=== PATIENT | male | born 1990 | race Caucasian/White ===

== ENCOUNTER 2017-01-13 19:38 | Emergency (ER) | payer OTHER ==
[2017-01-13] MEDS ORDERED: DIPH,PERTUS(ACELL)TETVAC-LF 0.5 ML VIAL IM ONE (19:48)
--- NOTE | 2017-01-13 19:58 | ED ---
General Adult HPI - General Chief complaint: Fall Stated complaint: ETOH Time Seen by Provider: 01/13/17 19:42 Source: patient, EMS, RN notes reviewed Mode of arrival: EMS Limitations: no limitations - History of Present Illness Initial comments: 46-year-old male presents to ER for evaluation. Patient presents status post fall with head injury. Patient was drinking alcohol today. Fall backwards striking the back of his head. Patient denies LOC. He is not on any blood thinners. No significant past medical history. Patient denies any other complaints. Denies neck pain. Denies chest or shortness breath as well. Patient is clinically intoxicated. - Related Data Allergies Allergy/AdvReac Type Severity Reaction Status Date / Time No Known Allergies Allergy Verified 01/13/17 19:47 Review of Systems ROS Statement: Those systems with pertinent positive or pertinent negative responses have been documented in the HPI. ROS Other: All systems not noted in ROS Statement are negative. Past Medical History Past Medical History: No Reported History History of Any Multi-Drug Resistant Organisms: None Reported Past Surgical History: No Surgical Hx Reported Past Psychological History: No Psychological Hx Reported Smoking Status: Current every day smoker Past Alcohol Use History: Heavy Past Drug Use History: Marijuana General Exam Limitations: no limitations General appearance: alert, appears intoxicated Head exam: Present: normocephalic, other (1.5 cm superficial laceration on the occiput, no active bleeding, underlying hematoma.) Eye exam: Present: normal appearance, PERRL ENT exam: Present: normal exam Neck exam: Present: normal inspection, full ROM. Absent: tenderness Respiratory exam: Present: normal lung sounds bilaterally, respiratory distress Cardiovascular Exam: Present: regular rate, normal rhythm GI/Abdominal exam: Present: soft. Absent: distended, tenderness Extremities exam: Present: normal inspection, normal capillary refill. Absent: pedal edema Back exam: Present: normal inspection, full ROM Neurological exam: Present: alert. Absent: motor sensory deficit Psychiatric exam: Present: normal affect, normal mood. Absent: suicidal ideation Skin exam: Present: warm, dry. Absent: cyanosis, diaphoretic Course Vital Signs 01/13/17 01/13/17 19:44 21:31 Temperature 97.9 F Pulse Rate 96 73 Respiratory 18 16 Rate Blood Pressure 136/63 129/59 O2 Sat by Pulse 96 95 Oximetry - Reevaluation(s) Reevaluation #1: 01/13/17 21:52 On reevaluation, patient is resting comfortable, no new complaints. Patient will be discharged with his girlfriend taking him home. Medical Decision Making - Medical Decision Making 46-year-old male presents status post fall with head injury. He does have a superficial laceration and hematoma on the occipital region. Head CT is negative for hemorrhage, CT cervical spine shows no fracture or subluxation. Patient is intoxicated alcohol 260. He will be discharged with his girlfriend. She will drive him home. Patient will follow-up with his primary care physician in the next several days. Disposition Clinical Impression: Fall, Alcohol intoxication, Concussion Disposition: HOME SELF-CARE Condition: Good Instructions: Concussion (ED), Alcohol Intoxication (ED) Referrals: Jeet Oneil DO [Primary Care Provider] - 1-2 days Time of Disposition: 21:55
--- NOTE | 2017-01-13 20:18 | CT ---
EXAMINATION TYPE: CT brain kaylee samuels DATE OF EXAM: 01/13/2017 COMPARISON: NONE HISTORY: Fall today with posterior injury CT DLP: 1768.[address] Brain: Unenhanced CT of the brain was performed. The ventricles, basal cisterns and sulci overlying the cerebral convexities demonstrate a normal appe arance. There is no evidence for intracranial hemorrhage or sulcal effacement. No mass effects are seen. If symptoms persist consider MRI. Osseous calvarium is intact. Moderate pansinusitis. IMPRESSION: No acute intracranial process CT Cervical Spine: Unenhanced CT of the cervical spine was performed with bone and soft tissue window settings submitted . Coronal and sagittal reconstruction is obtained. There is normal alignment and prevertebral soft tissues. I do not see evidence for fracture or sublu xation. No significant degenerative changes are present. The lung apices are clear. IMPRESSION: No evidence for acute fracture or subluxation of the cervical spine.
[2017-01-13 21:32] VITALS: BP 129/59; PULSE 73; RESP 16
[2017-01-13 22:02] VITALS: TEMP 97.5
== END 2017-01-13 22:02 | disposition home or self-care (01) ==
LOC: EC 19:38
DX: S06.0X0A Concussion without loss of consciousness, initial encounter (principal); F10.129 Alcohol abuse with intoxication, unspecified; F17.200 Nicotine dependence, unspecified, uncomplicated; Z23 Encounter for immunization; W18.00XA Striking against unspecified object with subsequent fall, initial encounter
CPT/HCPCS: 70450; 72125; 82075; 90471; 90715; 99284

== ENCOUNTER 2017-02-28 10:51 | Emergency (ER) | payer OTHER ==
--- NOTE | 2017-02-28 12:15 | XR ---
EXAMINATION TYPE: XR tibia fibula RT , 2 VIEWS DATE OF EXAM ORDERED: 02/28/2017 HISTORY: Pain. COMPARISON: None. FINDINGS: There has been previous intramedullary jocelyn fixation of the right tibia. There are healed f ractures of the distal diaphysis of the right tibia and fibula. No acute osseous lesion is seen. IMPRESSION: 1. NO ACUTE OSSEOUS LESION. 2. POSTSURGICAL CHANGE.
--- NOTE | 2017-02-28 12:45 | ED ---
General Adult HPI - General Chief complaint: Extremity Problem,Nontraumatic Stated complaint: right leg pain Time Seen by Provider: 02/28/17 11:39 Source: patient, RN notes reviewed, old records reviewed Mode of arrival: ambulatory Limitations: no limitations - History of Present Illness Initial comments: If complaint history of present illness a 26-year-old male here with a complaint of discomfort to his right knee. Patient reports he had surgery on the knee 8 years ago. He has a jocelyn in the midline. 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 He states the knee pain actually started 6 months ago. - Related Data Previous Rx's Medication Instructions Recorded Ibuprofen [Motrin] 600 mg PO Q6HR PRN #20 tab 02/28/17 Allergies Allergy/AdvReac Type Severity Reaction Status Date / Time No Known Allergies Allergy Verified 02/28/17 12:24 Review of Systems ROS Statement: Those systems with pertinent positive or pertinent negative responses have been documented in the HPI. Review of systems no headache chest pain shows breath GI/ problems. No complaint of a neuro deficits. On complaint of discomfort to the right knee area. All systems are reviewed. Past medical problems significant as noted above to injury to his mid shaft right tib-fib with a metal bar prosthesis placed 8 years ago. Patient was also reminded that is here in emergency room with an alcohol level elevated significantly approximately 6 weeks ago with a head injury from intoxication and fall. He states he may have also injured it at that time. Otherwise patient denies any chronic medical problems denies any problems psychologically. States he does smoke daily and is a heavy alcohol user. Family history noncontributory. No ALLERGIES. ROS Other: All systems not noted in ROS Statement are negative. Past Medical History Past Medical History: No Reported History History of Any Multi-Drug Resistant Organisms: None Reported Past Surgical History: Orthopedic Surgery Past Psychological History: No Psychological Hx Reported Smoking Status: Current every day smoker Past Alcohol Use History: Heavy Past Drug Use History: Marijuana General Exam - General Exam Comments Initial Comments: General: The patient is awake and alert, in no distress, and does not appear acutely ill. 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 Vital signs are stable. Eye: Pupils are equal, , extra-ocular movements are intact; there is normal conjunctiva bilaterally. No signs of icterus. Ears, nose, mouth and throat: There are moist mucous membranes Neck: The neck is supple, there is no tenderness, no complaint of pain. Cardiovascular: No complaint chest pain or palpitations. Respiratory: Denies shortness of breath. No evidence of any respiratory distress no wheezing. Gastrointestinal: No complaint of abdominal pain, no nausea no vomiting no diarrhea. Back: Full range of motion of back without complaint of pain. Musculoskeletal: Up her lower extremities appear normal. Able to ambulate. Complains discomfort with standing and working at the end of the day to his right knee. Evidence of well-healed surgical scar over the patella and proximal right tib- fib. Neurovascular status was intact. No swelling is noted. Negative Homans sign. Negative exam for into a range. Normal varus valgus and drawer testing. Neurological: No neuro deficits Skin: Skin is warm and dry and no rashes or lesions are noted. Limitations: no limitations Course Vital Signs 02/28/17 11:28 Temperature 97.0 F L Pulse Rate 104 H Respiratory 18 Rate Blood Pressure 135/75 O2 Sat by Pulse 99 Oximetry Medical Decision Making - Medical Decision Making X-ray of the right tib-fib was done and reviewed by radiologist and his report is there is no previous intramedullary jocelyn fixation of the right tibia. There is healed fractures of the distal diaphysis of the right tibia and fibula. No acute osseous lesion is seen. Impression; no acute osseous lesion. Postsurgical change. As read by Dr. Laurent One of the bruise is noted to be somewhat protruding on the AP view which correlates closely to wear the patient has discomfort. He'll be advised to follow-up with his orthopedic surgeon for evaluation of swelling not this may be causing some of his discomfort in that area. Clinically there is no abscess or redness at that same area. Patient be placed on ibuprofen 600 mg for pain. Advised not to over consume alcohol. Disposition Clinical Impression: Right knee pain Disposition: HOME SELF-CARE Condition: Stable Instructions: Knee Pain (ED), Arthralgia (ED) Additional Instructions: Ice Jessica at night after work. Take ibuprofen. Follow up with the orthopedic surgeon. Prescriptions: Ibuprofen [Motrin] 600 mg PO Q6HR PRN #20 tab PRN Reason: Pain Referrals: Jeet Oneil DO [Primary Care Provider] - 1-2 days Time of Disposition: 12:44
[2017-02-28 13:21] VITALS: BP 142/68; PULSE 92; RESP 16; TEMP 97.8
== END 2017-02-28 13:27 | disposition home or self-care (01) ==
LOC: EC 10:51
DX: M25.561 Pain in right knee (principal); M79.81 Nontraumatic hematoma of soft tissue; F17.200 Nicotine dependence, unspecified, uncomplicated; Z87.81 Personal history of (healed) traumatic fracture; Z98.890 Other specified postprocedural states
CPT/HCPCS: 99284

== ENCOUNTER 2017-05-11 20:09 | Inpatient (IN) | payer MEDICAID, OTHER ==
[2017-05-11] MEDS ORDERED: LORazepam 2 MG/ML INJ IM STA (21:09)
[2017-05-11] MEDS ORDERED: HALOPERIDOL LACTATE 5 MG/ML 1 ML VIAL IM STA (21:09)
--- NOTE | 2017-05-11 21:12 | ED ---
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 Per the petition, the mother states that she is concerned about the patient as he has been hallucinating and talking to himself and other invisible people. Patient is noncompliant with physical exam and refuses to talk about psychiatric illness and however, he does deny any physical complaints. - Related Data Home Medications Medication Instructions Recorded Confirmed Multivitamins, Thera [Multivitamin 1 tab PO DAILY 05/11/17 05/11/17 (formulary)] Allergies Allergy/AdvReac Type Severity Reaction Status Date / Time No Known Allergies Allergy Verified 05/11/17 20:25 Review of Systems ROS Statement: Those systems with pertinent positive or pertinent negative responses have been documented in the HPI. Constitutional: Negative for chills, fatigue and fever. HENT: Negative for congestion. Respiratory: Negative for chest tightness, shortness of breath and wheezing. Cardiovascular: Negative for chest pain and palpitations. Gastrointestinal: Negative for abdominal pain. Negative for abdominal distention , diarrhea, nausea and vomiting. Genitourinary: Negative for dysuria. Musculoskeletal: Negative for back pain, neck pain and neck stiffness. Skin: Negative for color change. Neurological: Negative for dizziness, speech difficulty, weakness and light- headedness. Psychiatric/Behavioral: Positive for agitation and confusion. The patient is nervous/anxious. ROS Other: All systems not noted in ROS Statement are negative. Past Medical History Past Medical History: No Reported History History of Any Multi-Drug Resistant Organisms: None Reported Past Surgical History: Orthopedic Surgery Past Psychological History: ADD/ADHD Smoking Status: Current every day smoker Past Alcohol Use History: Heavy Past Drug Use History: Marijuana General Exam - General Exam Comments Initial Comments: Physical Exam Constitutional: Pt is oriented to person, place, and time. Pt appears well- developed and well-nourished. No distress. HENT: Head: Normocephalic and atraumatic. Eyes: EOM are normal. Neck: Normal range of motion. Neck supple. Cardiovascular: Normal rate, regular rhythm, S1 normal, S2 normal and normal heart sounds. Exam reveals no gallop and no friction rub. No murmur heard. Pulmonary/Chest: Effort normal and breath sounds normal. No tachypnea and no bradypnea. No respiratory distress. No wheezes or rales noted. Abdominal: Soft. Bowel sounds are normal. Pt exhibits no shifting dullness, no distension, no pulsatile liver, no fluid wave, no abdominal bruit and no ascites. There is no tenderness. There is no rigidity, no rebound, no guarding, no tenderness at McBurney's point and negative Mcneil's sign. Musculoskeletal: Normal range of motion. Neurological: Pt is alert and oriented to person, place, and time. No cranial nerve deficit. Skin: Skin is warm and dry. No rash noted. He is not diaphoretic. No erythema. No pallor. Psychiatric: Patient exhibits aggressive behavior. No obvious hallucinations Limitations: no limitations Course Vital Signs 05/11/17 20:11 Temperature 98.4 F Pulse Rate 103 H Respiratory 18 Rate Blood Pressure 140/91 O2 Sat by Pulse 98 Oximetry - Reevaluation(s) Reevaluation #1: 05/11/17 21:11 Security as been called to the patient's bedside as he took a staff member's phone. It is felt that the patient could be a physical threat to the staff and therefore George and ordered 5 mg of Haldol as well as 2 mg of Ativan. Medical Decision Making - Medical Decision Making Patient has exhibited aggressive behavior that put himself at a risk to himself and others. Patient has been petitioned by his mother as well as certified by myself, the physician Disposition Clinical Impression: Aggressive behavior Disposition: TRANSFER TO PSYCH HOSP/UNIT Condition: Fair Time of Disposition: 21:41
[2017-05-11] MEDS ORDERED: LORazepam 1 MG TAB PO PRN (23:18)
[2017-05-11] MEDS ORDERED: MAGNESIUM HYDROXIDE 2,400 MG/10 ML CUP PO PRN (23:18)
[2017-05-11] MEDS ORDERED: MAG HYDROX/AL HYDROX/SIMETH 30 ML CUP PO PRN (23:18)
[2017-05-11] MEDS ORDERED: ZIPRASIDONE 20 MG VIAL IM PRN (23:18)
[2017-05-12 09:59] LABS: Basophils % (A) 1 %; Eosinophils # (A) 0.2 k/uL (0-0.7); Eosinophils % (A) 3 %; HGB 14.7 gm/dL (13.0-17.5); Lymphocytes # (A) 1.7 k/uL (1.0-4.8); Lymphocytes % (A) 33 %; MCH 31.3 pg (25.0-35.0); MCHC 32.7 g/dL (31.0-37.0); MCV 95.6 fL (80.0-100.0); Mean Platelet Volume 7.5; Monocytes # (A) 0.4 k/uL (0-1.0); Monocytes % (A) 7 %; Neutrophils # (A) 2.9 k/uL (1.3-7.7); Neutrophils % (A) 55 %; Platelet Count 224 k/uL (150-450); RBC 4.71 m/uL (4.30-5.90); RDW 12.1 % (11.5-15.5); WBC 5.2 k/uL (3.8-10.6)
[2017-05-12 10:33] LABS: ALT 24 U/L (21-72); AST 23 U/L (17-59); Albumin 3.9 g/dL (3.5-5.0); Alkaline Phosphatase 45 U/L (38-126); Anion Gap 11 mmol/L; Blood Urea Nitrogen 12 mg/dL (9-20); Calcium 9.6 mg/dL (8.4-10.2); Carbon Dioxide 29 mmol/L (22-30); Chloride 103 mmol/L (98-107); Cholesterol 121 mg/dL (<200); Glucose 81 mg/dL (74-99); HDL Cholesterol 43 mg/dL (40-60); LDL Cholesterol,Calculated 64 mg/dL (0-99); Potassium 4.7 mmol/L (3.5-5.1); Sodium 143 mmol/L (137-145); Total Bilirubin 0.5 mg/dL (0.2-1.3); Total Protein 6.4 g/dL (6.3-8.2); Triglycerides 68 mg/dL (<150)
--- NOTE | 2017-05-12 11:45 | P.HP ---
Psychiatric H&P - . History & Physical: Allergies Allergy/AdvReac Type Severity Reaction Status Date / Time No Known Allergies Allergy Verified 05/11/17 20:25 Vital Signs Temp 98.2 F 05/11/17 22:14 Pulse 113 H 05/11/17 22:14 Resp 18 05/11/17 22:14 BP 133/74 05/11/17 22:14 Pulse Ox 98 05/11/17 20:11 Intake & Output 05/11/17 05/12/17 05/12/17 18:59 06:59 18:59 Weight 87.3 kg Laboratory Last Values WBC 5.2 k/uL (3.8-10.6) 05/12/17 09:43 RBC 4.71 m/uL (4.30-5.90) 05/12/17 09:43 Hgb 14.7 gm/dL (13.0-17.5) 05/12/17 09:43 Hct 45.0 % (39.0-53.0) 05/12/17 09:43 MCV 95.6 fL (80.0-100.0) 05/12/17 09:43 MCH 31.3 pg (25.0-35.0) 05/12/17 09:43 MCHC 32.7 g/dL (31.0-37.0) 05/12/17 09:43 RDW 12.1 % (11.5-15.5) 05/12/17 09:43 Plt Count 224 k/uL (150-450) 05/12/17 09:43 Neutrophils % 55 % 05/12/17 09:43 Lymphocytes % 33 % 05/12/17 09:43 Monocytes % 7 % 05/12/17 09:43 Eosinophils % 3 % 05/12/17 09:43 Basophils % 1 % 05/12/17 09:43 Neutrophils # 2.9 k/uL (1.3-7.7) 05/12/17 09:43 Lymphocytes # 1.7 k/uL (1.0-4.8) 05/12/17 09:43 Monocytes # 0.4 k/uL (0-1.0) 05/12/17 09:43 Eosinophils # 0.2 k/uL (0-0.7) 05/12/17 09:43 Basophils # 0.0 k/uL (0-0.2) 05/12/17 09:43 Sodium 143 mmol/L (137-145) 05/12/17 09:43 Potassium 4.7 mmol/L (3.5-5.1) 05/12/17 09:43 Chloride 103 mmol/L (98-107) 05/12/17 09:43 Carbon Dioxide 29 mmol/L (22-30) 05/12/17 09:43 Anion Gap 11 mmol/L 05/12/17 09:43 BUN 12 mg/dL (9-20) 05/12/17 09:43 Creatinine 0.90 mg/dL (0.66-1.25) 05/12/17 09:43 Est GFR (MDRD) Af Amer >60 (>60 ml/min/1.73 sqM) 05/12/17 09:43 Est GFR (MDRD) Non-Af >60 (>60 ml/min/1.73 sqM) 05/12/17 09:43 Glucose 81 mg/dL (74-99) 05/12/17 09:43 Calcium 9.6 mg/dL (8.4-10.2) 05/12/17 09:43 Total Bilirubin 0.5 mg/dL (0.2-1.3) 05/12/17 09:43 AST 23 U/L (17-59) 05/12/17 09:43 ALT 24 U/L (21-72) 05/12/17 09:43 Alkaline Phosphatase 45 U/L (38-126) 05/12/17 09:43 Total Protein 6.4 g/dL (6.3-8.2) 05/12/17 09:43 Albumin 3.9 g/dL (3.5-5.0) 05/12/17 09:43 Triglycerides 68 mg/dL (<150) 05/12/17 09:43 Cholesterol 121 mg/dL (<200) 05/12/17 09:43 LDL Cholesterol, Calc 64 mg/dL (0-99) 05/12/17 09:43 HDL Cholesterol 43 mg/dL (40-60) 05/12/17 09:43 TSH 0.945 mIU/L (0.465-4.680) 05/12/17 09:43 05/12/17 11:34 IDENTIFYING DATA: This patient is a 27-year-old male who was admitted to the mental health unit on a pickup order noting symptoms of psychosis and agitation. HPI: The patient's was petition by his mother which indicates "at this time Juan is out of control he said the Feds are after him and everything is a conspiracy. He talks to himself. Juan will talk about swimming over to [place] and says with the ice he can walk across and threatens that he will go no matter what. He has broken into my home kicked indoors stealing my phone and says he bought things on the streets. He also will talk about being an informant for the FBI and the [place] [employer]. He wanders around the home like he is looking for something and when I ask what he says you know I can't tell you they will come and hurt you. He doesn't shower properly and take care of his daily needs such as eating brushing his teeth." The petition goes on for several more sentences which suggest the patient is using illicit drugs. The patient is quite frustrated that he has been admitted to the mental health unit. He does not wish to remain here voluntarily for further evaluation. He states everything on the petition is untrue. He reports his mood is good he indicates having no depressive thoughts now feelings of anxiety. He endorses no hypomanic or manic episodes and he endorses no symptoms of psychosis. He states his mother is an alcohol user and she has been on this mental health unit and she did this to him just so he would know how she felt. The patient does indicate that he has been "partying hard" for the last 10 days which involve use of alcohol Adderall and possibly cocaine. PAST PSYCHIATRIC HISTORY: Prior inpatient psychiatric admissions, no reports of suicide attempts or any other self-injurious behavior. He states he was given trazodone in correction and had a seizure but nobody knew he had a seizure PMH: None reported ALLERGIES: NO KNOWN DRUG ALLERGIES MEDICATIONS: None CHEMICAL DEPENDENCY HISTORY: He reports using alcohol on the weekends having at least 10 drinks area he states he does have a history of using alcohol heavily. He reports using marijuana weekly or twice weekly. He has been using Adderall off the street twice weekly quantity undisclosed period he reports he has used other substances in the past but does not specify. He has never been placed in residential treatment for chemical dependency reasons. FAMILY PSYCHIATRIC HISTORY: He indicates his mother's had unspecified mental health issues FAMILY CHEMICAL DEPENDENCY HISTORY:'s mother is known to have an alcohol use disorder SOCIAL HISTORY: The patient is he states he has 6 children with 2 mothers. He does not have custody of the children but reports seeing them 2-3 times a week. 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 He went as far as 11th grade and then earned his GED. No history of service. He has 2 siblings. He has from the [facility]. It appears he spends most of his time at his mother's house. He reports that he will get kicked out of his friend's home and his mother's home at times but does not disclose why. Legal history appears extensive. He has at least 2 felonies related to possession or use of substances including cocaine he has served 2 separate 1 year correction sentences. He indicates he has no charges for any violent behavior. Abuse history none reported. MENTAL STATUS EXAM: The patient is alert he has a disheveled appearance hygiene is adequate. He has visible tattoos on his upper extremities he is dressed in his own clothing. Eye contact is intermittent. He has difficulty sitting still and frequently moves while seated in his chair. He expresses how frustrated he is and that this hospitalization makes him feel angry and irritable but he demonstrates no aggressive behavior. He reports his mood is good affect is incongruent and appears frustrated. He denies having any suicidal or homicidal ideation intent or plan. He is reporting he is experiencing no auditory or visual hallucinations and he reports experiencing no delusional thought. He conveys feelings of persecution that his mother has petitioned him to somehow get even. At times during the session he will briefly say statement to himself out loud and then proceed with answering the question asked of him. He spent several minutes going through the lengthy petition repeatedly stating that it's lies and looking for contradictions with in the written statement. Insight and judgment limited. He demonstrates no abnormal involuntary movements. He is oriented to person place and date. He is able to spell world backwards. STRENGTHS/WEAKNESSES: Strengths housing with family or friends weaknesses poor insight into presenting symptoms no consistent employment or housing of his own INTELLECTUAL FUNCTIONING: Below average to average IMPRESSIONS: [] 1. Psychosis unspecified, rule out primary psychotic etiology versus substance- induced psychosis, suspect history of cannabis use disorder cocaine use disorder alcohol use disorder 2. Suspect antisocial personality disorder traits PLAN: The patient's has been admitted to the mental health unit he does not wish to be her voluntarily so that we can conduct a psychiatric evaluation and assess his safety risks. Therefore a second clinical certificate will be completed. It is possible his symptoms have been substance induced we do not have lab work results available yet such as a urine drug screen as he would not cooperate last evening with that test. He is instructed to participate in groups so that he will interact with the multidisciplinary team which will assist us in forming a professional opinion. He will be seen by internal medicine for routine history and physical exam. Social work will meet with the patient to complete a psychosocial assessment. We will monitor him for safety. We will include family in treatment and discharge planning as he will allow.
[2017-05-12 18:07] LABS: Hemoglobin A1C 5.6 % (4.0-6.0)
--- NOTE | 2017-05-12 18:13 | CONS ---
CONSULTATION DATE OF CONSULTATION: 05/12/17 REASON FOR CONSULTATION: Medical management requested by Dr. Trejo. CONSULTATION: This is a 27-year-old patient of Dr. Oneil with unremarkable past medical history who presented to the ER, brought in by the police department for a petition court order. For the petition, mother states that she had concern the patient had been hallucinating and talking to himself, invisible people. Sometimes he gets out of control. He said that the Feds are after him and everything is conspiracy. He talks to himself. Sometimes he talks about swimming over to [employer]. He says he wants to walk above on the ice. He talks about informant from the [facility] and [place] [employer]. Walks around the house looking for things. Apparently the patient has been partying hard, including alcohol, Adderall, possible cocaine. The patient is somewhat fidgety and unsure during history taking. REVIEW OF SYSTEMS: CONSTITUTIONAL: None. HEENT none. Respiratory none. Cardiovascular none. Gastrointestinal denies. Genitourinary: None. Musculoskeletal: None. Dermatological, hematologic, lymphatic none. Psychiatry as above. Neurological none. PAST MEDICAL HISTORY: None. SOCIAL HISTORY: Surgical history is orthopedic surgery. PSYCH HISTORY: ADHD. SOCIAL HISTORY: Drinks alcohol sometimes in binges and sometimes on weekends. Smokes at least a pack a day. Does marijuana occasionally. Apparently did Adderall and cocaine at a recent democrat. Lives with his aunt. 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 FAMILY HISTORY: Patient cannot tell. HOME MEDICATIONS: Multivitamins. EXAMINATION: Temperature 98.4, pulse 92, respiratory 18, blood pressure 145/64, pulse ox 98% on room air. General appearance: Average built, sitting up, somewhat restless. Eyes pupils are equal. Conjunctivae normal. HEENT: Oral cavity normal. Neck JVD not raised. Mass not palpable. Respiratory effort: Lungs are clear. Cardiovascular 1st and 2nd sounds normal. No edema. ABDOMEN: Soft, nontender. Liver and spleen not palpable. Lymphatics: No lymph nodes palpable in the neck and axilla. Psychiatry: For full details of psych history see psych evaluation see Dr. Trejo's notes. Neurological: Pupils equal. No facial asymmetry. Power and sensation grossly intact. INVESTIGATIONS: White count 5.2, hemoglobin 14.7, potassium 4.7. BUN and creatinine is normal. TSH is normal. ASSESSMENT: 1. Psychosis, unspecified. 2. Chronic nicotine dependence. 3. Alcohol use. Unknown if he takes excessive at this point. PLAN: We will give patient a nicotine patch. The patient is on Ativan p.r.n. and Geodon per Psychiatry. The patient should follow with Dr. Oneil upon discharge. Thank you Dr. Trejo. MMDESIREE / CRN: [id number] /
[2017-05-13 10:50] LABS: Appearance,Urine Clear (Clear); Bilirubin,Urine Negative (Negative); Blood,Urine Negative (Negative); Color,Urine Colorless; Glucose,Urine (UA) Negative (Negative); Ketones,Urine Negative (Negative); Leukocyte Esterase,Urine Negative (Negative); Nitrite,Urine Negative (Negative); Protein,Urine Negative (Negative); Specific Gravity,Urine 1.001 (1.001-1.035); Urobilinogen,Urine <2.0 mg/dL (<2.0)
[2017-05-13 11:01] LABS: Amphetamine Screen,Urine Not Detected (NotDetected); Barbiturate Screen,Urine Not Detected (NotDetected); Benzodiazepines Screen,Urine Not Detected (NotDetected); Cocaine Screen,Urine Not Detected (NotDetected); Methadone Screen, Urine Not Detected (NotDetected); Opiate Screen,Urine Not Detected (NotDetected); Oxycodone Screen, Urine Not Detected (NotDetected); Phencyclidine Screen,Urine Not Detected (NotDetected); Tricyclic Antidepressant,Urine Not Detected (NotDetected); Urn Cannabinoid Scrn Not Detected (NotDetected)
--- NOTE | 2017-05-13 11:24 | P.PN ---
Progress Note - Text Interval history: The patient is found in his room he follows me to an interview room. He reports that his mood is fine he is interested in being discharged from mental health unit. He continues to feel frustrated that he was petitioned here. He allowed social work to speak with his aunt whom he plans on residing with. He will not allow us to speak with his mother. Staff report that the patient is distractible in group but there is no thought that he is responding to hallucinations. There has been no agitated behavior. Mental status exam: The patient is alert he seated calmly he has a disheveled appearance eye contact is appropriate speech is fluent spontaneous nonpressured. He is directable in the session. He does not appear to be responding to hallucinations. He is reporting no suicidal or homicidal ideation intent or plan. He is endorsing no specific delusions as we reviewed several types. He does appear distractible which may be part of an attention deficit syndrome or sequela of chronic substance use. He demonstrates no verbal or physical aggressiveness. He is oriented to person place and date. Plan: The patient continues to not want to be her voluntarily he does not wish to be on a psychotropic medication. We are assessing his safety risk factors. Primarily we are trying to determine the etiology of his psychosis as it may have been drug-induced. He did not provide a urine sample yesterday again. We did obtain one this morning the urine drug screen was negative. He had indicated previously that he was abusing cocaine and Adderall which may have induced the psychosis. We will continue to monitor him further. He is instructed to attend groups. His deferral conference is scheduled for Wednesday.
[2017-05-13] MEDS ORDERED: NICOTINE 21MG/24HR PATCH TRANSDERM STA (12:43)
[2017-05-14 06:33] VITALS: RESP 16
--- NOTE | 2017-05-14 09:26 | P.PN ---
Progress Note - Text Interval history: The patient is found in his room he follows me to an interview room. He reports his mood is stable however he was frustrated and sad that he was served with a PPO yesterday issued by his mother's boyfriend. He states although this is disappointing he can abide by the PPO and his aunt's residence is far enough away from. He typically does not sleep at night staff reported 6 hours he does still nap during the day. It appears that he was sleep deprived prior to coming to the hospital. We discussed his use of substances prior to this admission. He does not wish to participate in inpatient chemical dependency treatment but is willing to discuss his use as an outpatient with an individual therapist. He reports attending only 2 groups yesterday we discussed that this is insufficient and he needs to be more compliant with the milieu. Mental status exam: The patient is alert he seated calmly eye contact is appropriate speech is fluent. He is cooperative during the session. He reports having no suicidal or homicidal ideation intent or plan. He is reporting no auditory or visual hallucinations or specific delusions. He states his thoughts of the FBI and other paranoid themes are no longer present. He does not appear to be responding to hallucinations during our interaction today. He remains oriented to person place and date. He is able to sit more calmly in the chair with less fidgeting. He does again indicate he has ADHD and he does better when on stimulant medication. Affect is constricted he demonstrates some mild range of expression. Plan: The patient will continue being assessed for safety while here on the mental health unit. His deferral conference is Wednesday. He does not seem to require a psychotropic medication at this time. I anticipate he will be appropriate for discharge Wednesday if he demonstrates clinical stability. He is instructed to attend more groups so that staff have more interaction opportunities with him.
[2017-05-14] MEDS: NICOTINE 21MG/24HR PATCH TRANSDERM SCH (09:30)
[2017-05-14] MEDS: ACETAMINOPHEN TAB 325 MG TAB PO PRN ×3 (12:48→22:24)
[2017-05-15] MEDS: NICOTINE 21MG/24HR PATCH TRANSDERM SCH (09:04)
[2017-05-15] MEDS: ACETAMINOPHEN TAB 325 MG TAB PO PRN ×3 (09:05→19:21)
--- NOTE | 2017-05-15 12:05 | P.PN ---
Progress Note - Text Progress Note Date: 05/15/17 Interval history: [place] [facility] [place]. Trejo. He reports that he slept well last night, he woke up a few times is able to fall back asleep. He is eating well. He is not currently on any standing psychotropic medication. He does talk about looking at discharge planning for Wednesday. Reports that he has only taken the Tylenol as a when necessary. Mental status exam: He is alert and cooperative with the interview. His speech is fluent, not rapid or pressured. Thought processes organized. His mood seems to be stable. He denies any thoughts of harm to self or others. He denies any hallucinations. He denies any paranoid thoughts. He does not show any agitation. Plan: Patient will be monitored regarding his status. We'll continue to cover this patient through the weekend.
[2017-05-16] MEDS: NICOTINE 21MG/24HR PATCH TRANSDERM SCH (09:01)
[2017-05-16] MEDS: ACETAMINOPHEN TAB 325 MG TAB PO PRN (10:46)
--- NOTE | 2017-05-16 13:22 | P.PN ---
Progress Note - Text Progress Note Date: 05/16/17 Interval history: Patient reports that his mood is doing pretty good, relays that he feels a little bit hyper today. He does state that he slept well last night again he is eating well. He does talk about potential discharge planning for tomorrow. He is seen in cross coverage today again. Mental status exam: He is alert and cooperative with the interview. His speech is fluent, not rapid or pressured. Thought processes are organized. His mood seems to be stable overall. He denies any thoughts of harm to self or others. No evidence of active psychosis or any agitation. Plan: We'll continue to monitor patient's status, he does have deferral tomorrow. We'll continue to cover this patient to the weekend.
[2017-05-17 07:12] VITALS: BP 133/67; PULSE 90; TEMP 97.9
[2017-05-17] MEDS: NICOTINE 21MG/24HR PATCH TRANSDERM SCH (08:41)
[2017-05-17] MEDS: ACETAMINOPHEN TAB 325 MG TAB PO PRN (09:21)
--- NOTE | 2017-05-17 11:14 | P.DS ---
Providers Date of admission: 05/11/17 21:30 Expected date of discharge: 05/17/17 Attending physician: Chandler Trejo Consults: 05/11/17 23:18 Consult Physician Routine Consulting Provider: Benson White Consult Reason/Comments: H and P Do you want consulting provider notified?: Yes Primary care physician: Jeet Oneil - Discharge Diagnosis(es) (1) Substance-induced psychotic disorder Current Visit: Yes Status: Acute Priority: High Hospital Course: Brief summary of admission note: This patient is a 27-year-old male who was admitted to the mental health unit on a pickup order due to symptoms of psychosis and agitation. The patient was petition by his mother indicating the patient was out of control he was concerned that federal agents were after him and everything is a conspiracy. It was noted he was talking himself. The petition also indicated the patient was using substances as well. For full details please refer to my psychiatric evaluation dated 05/12/2017. Summary of hospital course: The patient was admitted to the mental health unit on a petition and clinical certificate. The patient refused voluntary hospitalization at time of admission. A second clinical certificate was completed so that we could appropriately evaluate the patient and assess his safety risk. The patient is scheduled to have a deferral conference today. The patient refused any antipsychotic medication. At presentation he stated he was not psychotic and he denied having any symptoms reported on the petition. He was forthright in admitting that he had been excessively using Adderall cocaine and possibly other substances prior to admission. During the course of his stay he demonstrated no evidence of psychosis. He was not observed to hallucinate he demonstrated no agitated behavior. As the hospitalization progressed he did participate more in groups. He was able to attend to his activities of daily living. He was seen by internal medicine for routine history and physical exam. Mental status exam: The patient is alert he is dressed in his own clothing hygiene is adequate. He seated calmly in his chair. He has spontaneous fluent speech that is nonpressured. He reports his mood is fine. Affect is appropriately expressive. He reports no suicidal or homicidal ideation intent or plan. He is reporting no auditory or visual hallucinations or any specific delusions. He does not demonstrate any overt evidence of psychosis. His thought process is linear she demonstrates no tangential thinking loose associations or flight of ideas. He does not appear hypomanic or manic. He demonstrates no verbal or physical aggressiveness he demonstrates no abnormal involuntary movements. Insight and judgment appear grossly intact. He is oriented to person place and date. Impressions 1. Substance-induced psychosis, rule out stimulant use disorder, cocaine use disorder, alcohol use disorder 2. Rule out antisocial personality disorder traits Plan: The patient will participate in a deferral conference this afternoon. He indicates he plans on deferring and following up with outpatient mental health services. It appears he will be discharged to his aunt's home. The patient did not allow us to speak with his mother who was the petitioner. We were able to contact his aunt however. We discussed having him participate in inpatient chemical dependency treatment but he felt it was unnecessary and denied the opportunity several times during the hospitalization. He states he is willing to address these issues with outpatient mental health services. He has not demonstrated any evidence of psychosis while on the mental health unit nor has he appeared hypomanic or manic. We do believe that his symptoms were induced by use of substances specifically Adderall and cocaine. There is no imminent safety risk perceived at this time and he will be transition to outpatient care. He is instructed to return to hospital if any acute safety concerns and is instructed to abstain from alcohol marijuana and any other illicit drug as these could elevate his safety risk. Patient Condition at Discharge: Stable Plan - Discharge Summary Discharge Rx Participant: No New Discharge Prescriptions: New Nicotine 21Mg/24Hr Patch [Habitrol] 1 patch TRANSDERM DAILY #12 patch Continue Multivitamins, Thera [Multivitamin (formulary)] 1 tab PO DAILY Discharge Medication List Multivitamins, Thera [Multivitamin (formulary)] 1 tab PO DAILY 05/11/17 [History ] Nicotine 21Mg/24Hr Patch [Habitrol] 1 patch TRANSDERM DAILY #12 patch 05/17/17 [ Rx] Follow up Appointment(s)/Referral(s): Jeet Oneil DO [Primary Care Provider] - 1-2 days Activity/Diet/Wound Care/Special Instructions: Remove all weapons and firearms from your home; Refrain from street drugs and alcohol; Regular diet; Activity as tolerated; Keep all scheduled follow-up appointments for continuity of care; If you need any prescription refills, contact your PCP for medical meds. and your aftercare psychiatrist for pscyh. meds.; Any problems call the Crisis Line at or [phone] in case of emergency or return to the ER for evaluation.
== END 2017-05-17 15:15 | disposition home or self-care (01) | DRG 897 ==
LOC: EC 20:09 → 3MHU 21:30
PROVIDERS: ADMIT Psychiatry & Neurology Psychiatry; ATTEND Psychiatry & Neurology Psychiatry
DX: F15.951 Other stimulant use, unspecified with stimulant-induced psychotic disorder with hallucinations (principal); F14.951 Cocaine use, unspecified with cocaine-induced psychotic disorder with hallucinations; F12.90 Cannabis use, unspecified, uncomplicated; F17.210 Nicotine dependence, cigarettes, uncomplicated; F90.9 Attention-deficit hyperactivity disorder, unspecified type; Z79.899 Other long term (current) drug therapy; Z91.19 Patient's noncompliance with other medical treatment and regimen; Z72.89 Other problems related to lifestyle; Z72.820 Sleep deprivation; Z81.1 Family history of alcohol abuse and dependence
CPT/HCPCS: 80053; 80061; 80306; 81003; 82075; 83036; 84443; 85025; 96372; 99285

== ENCOUNTER 2017-06-04 16:42 | Inpatient (IN) | payer MEDICAID, OTHER ==
--- NOTE | 2017-06-04 17:30 | ED ---
Psych HPI - General Chief Complaint: Psychiatric Symptoms Stated Complaint: Petition Time Seen by Provider: 06/04/17 17:00 Source: patient, police Mode of arrival: ambulatory - History of Present Illness Initial Comments: 27-year-old male patient presents to the emergency department today with [employer] on a pickup order from the Court. Patient reports that he missed an appointment with the [facility] after being discharged from the mental health unit a couple weeks ago. Patient states that he was admitted to the mental health unit on a petition. He states that he was not suicidal or homicidal. He states that he was discharged without any prescriptions. He states that he had an appointment to follow up did feel that he needed to go. He denies any current suicidal or homicidal ideation. He states that he is eating without difficulty. States he is sleeping without difficulty. He states he is feeling well physically. Patient denies any recent rash, fever, chills, shortness breath, chest pain, abdominal pain, nausea, vomiting, diarrhea , constipation, back pain, numbness, tingling, dizziness, weakness, hematuria, dysuria, urinary urgency, urinary frequency, headache, visual changes, or any other complaints. - Related Data Home Medications Medication Instructions Recorded Confirmed No Known Home Medications [No 06/04/17 06/04/17 Known Home Medications] Allergies Allergy/AdvReac Type Severity Reaction Status Date / Time No Known Allergies Allergy Verified 06/04/17 17:37 Review of Systems ROS Statement: Those systems with pertinent positive or pertinent negative responses have been documented in the HPI. ROS Other: All systems not noted in ROS Statement are negative. Past Medical History Past Medical History: No Reported History History of Any Multi-Drug Resistant Organisms: None Reported Past Surgical History: Orthopedic Surgery Past Psychological History: ADD/ADHD Smoking Status: Current every day smoker Past Alcohol Use History: Occasional Past Drug Use History: Marijuana General Exam Limitations: no limitations General appearance: alert, in no apparent distress, other (This is a well- developed, well-nourished adult male patient in no acute distress. Vital signs upon presentation are temperature 97.8F, pulse 108, respirations 18, blood pressure 124/88, pulse ox 98% on room air.) Eye exam: Present: normal appearance, PERRL, EOMI. Absent: scleral icterus, conjunctival injection, periorbital swelling ENT exam: Present: normal exam, normal oropharynx, mucous membranes moist Respiratory exam: Present: normal lung sounds bilaterally. Absent: respiratory distress, wheezes, rales, rhonchi, stridor Cardiovascular Exam: Present: regular rate, normal rhythm, normal heart sounds. Absent: systolic murmur, diastolic murmur, rubs, gallop, clicks Neurological exam: Present: alert, oriented X3, CN II-XII intact Psychiatric exam: Present: normal affect, normal mood Skin exam: Present: warm, dry, intact, normal color. Absent: rash Course Vital Signs 06/04/17 06/04/17 16:56 19:19 Temperature 97.8 F 97.0 F L Pulse Rate 108 H 101 H Respiratory 18 18 Rate Blood Pressure 124/88 114/86 O2 Sat by Pulse 98 98 Oximetry Medical Decision Making - Medical Decision Making 27-year-old male patient presented to the emergency department today accompanied by [facility] on a pickup order by the court for missing an appointment at [facility]. Patient was evaluated by emergency psych services. He'll be admitted to the mental health unit for further evaluation. - Lab Data Lab Results 06/04/17 Range/Units 17:33 Urine Opiates Screen Not Detected (NotDetected) Ur Oxycodone Screen Not Detected (NotDetected) Urine Methadone Screen Not Detected (NotDetected) Ur Propoxyphene Screen Not Detected (NotDetected) Ur Barbiturates Screen Not Detected (NotDetected) U Tricyclic Antidepress Not Detected (NotDetected) Ur Phencyclidine Scrn Not Detected (NotDetected) Ur Amphetamines Screen Detected H (NotDetected) U Methamphetamines Scrn Not Detected (NotDetected) U Benzodiazepines Scrn Not Detected (NotDetected) Urine Cocaine Screen Not Detected (NotDetected) U Marijuana (THC) Screen Detected H (NotDetected) Disposition Clinical Impression: Depression Disposition: TRANSFER TO PSYCH HOSP/UNIT - Out of Hospital Transfer - Req. Specs Out of Hospital Transfer - Requested Specifics: Psychiatric Non-ICU ([facility])
[2017-06-04 17:59] LABS: Amphetamine Screen,Urine Detected (NotDetected); Barbiturate Screen,Urine Not Detected (NotDetected); Benzodiazepines Screen,Urine Not Detected (NotDetected); Cocaine Screen,Urine Not Detected (NotDetected); Methadone Screen, Urine Not Detected (NotDetected); Opiate Screen,Urine Not Detected (NotDetected); Oxycodone Screen, Urine Not Detected (NotDetected); Phencyclidine Screen,Urine Not Detected (NotDetected); Tricyclic Antidepressant,Urine Not Detected (NotDetected); Urn Cannabinoid Scrn Detected (NotDetected)
[2017-06-04] MEDS ORDERED: LORazepam 1 MG TAB PO PRN (19:13)
[2017-06-04] MEDS ORDERED: MAGNESIUM HYDROXIDE 2,400 MG/10 ML CUP PO PRN (19:13)
[2017-06-04] MEDS ORDERED: ZIPRASIDONE 20 MG VIAL IM PRN (19:13)
[2017-06-04] MEDS ORDERED: ACETAMINOPHEN TAB 325 MG TAB PO PRN (19:13)
[2017-06-04] MEDS ORDERED: MAG HYDROX/AL HYDROX/SIMETH 30 ML CUP PO PRN (19:13)
[2017-06-04] MEDS ORDERED: LORazepam 2 MG/ML INJ IM PRN (19:15)
[2017-06-04 21:06] VITALS: RESP 16
[2017-06-05 08:38] LABS: Basophils # (A) 0.1 k/uL (0-0.2); Basophils % (A) 1 %; Eosinophils # (A) 0.1 k/uL (0-0.7); Eosinophils % (A) 2 %; HCT 47.3 % (39.0-53.0); HGB 15.6 gm/dL (13.0-17.5); Lymphocytes # (A) 2.1 k/uL (1.0-4.8); Lymphocytes % (A) 32 %; MCH 31.2 pg (25.0-35.0); MCHC 33.1 g/dL (31.0-37.0); MCV 94.3 fL (80.0-100.0); Mean Platelet Volume 7.9; Monocytes # (A) 0.5 k/uL (0-1.0); Monocytes % (A) 7 %; Neutrophils # (A) 3.6 k/uL (1.3-7.7); Neutrophils % (A) 56 %; Platelet Count 213 k/uL (150-450); RBC 5.01 m/uL (4.30-5.90); RDW 12.3 % (11.5-15.5); WBC 6.4 k/uL (3.8-10.6)
[2017-06-05 08:54] LABS: ALT 28 U/L (21-72); AST 25 U/L (17-59); Albumin 4.1 g/dL (3.5-5.0); Alkaline Phosphatase 50 U/L (38-126); Anion Gap 10 mmol/L; Blood Urea Nitrogen 17 mg/dL (9-20); Calcium 9.6 mg/dL (8.4-10.2); Carbon Dioxide 25 mmol/L (22-30); Chloride 104 mmol/L (98-107); Glucose 91 mg/dL (74-99); Sodium 139 mmol/L (137-145); Total Bilirubin 0.8 mg/dL (0.2-1.3); Total Protein 6.7 g/dL (6.3-8.2)
[2017-06-05 09:01] LABS: Potassium 4.7 mmol/L (3.5-5.1)
[2017-06-05] MEDS: NICOTINE 21MG/24HR PATCH TRANSDERM SCH (09:12)
--- NOTE | 2017-06-05 10:58 | HP ---
HISTORY AND PHYSICAL PSYCHIATRIC HISTORY AND PHYSICAL EXAMINATION DATE OF SERVICE: 06/05/2017 IDENTIFYING DATA: The patient is a 27, white, single male, father of 6 children, unemployed. He was brought to the ER on court ordered. CHIEF COMPLAINT: "I do not know why I am here. I just missed my outpatient treatment, but there is nothing wrong with me". HISTORY OF PRESENT ILLNESS: As the patient was very vague, evasive and guarded, the history was taken from the medical record in addition to nursing staff information. The patient was recently here on involuntary basis under Dr. Trejo. Please refer to his history and physical examination and the discharge summary and he was discharged with the plan to follow up with [facility]. Patient did not show up and he never had been been compliant with inpatient or outpatient substance abuse treatment. The patient denied any suicidal or homicide ideation. Denies any psychotic features. He stated that he does not use any drugs, except "Adderall because I am having attention deficit". Nursing staff informed me that they found multiple phone numbers and multiple ID cards with the patient yesterday in addition to plastic bag with white powder. When I confronted the patient about this, he said "I'm not answering any question without my bankruptcy attorney present here". PAST PSYCHIATRIC HISTORY: As I mentioned before, the patient was on the mental health unit from May 11 until May 17. Diagnoses polysubstance use disorder, cocaine use disorder and substance induced psychotic features. He was discharged without any psychotropic medication. FAMILY HISTORY OF PSYCHIATRIC ILLNESS: Mother has bipolar or schizophrenia. SUBSTANCE ABUSE HISTORY: It seems it is very extensive substance abuse history, however, the patient minimizing this. There is history of Adderall use, cocaine and alcohol use. Nicotine, he has been smoking 1 pack a day for more than 14 years. ALLERGIES: There is no known drug allergy. MEDICATIONS: There is no medication. BRIEF SOCIAL HISTORY: The patient has 6 children from 3 different relationships. He does not have custody of the children, but he stated that he does visit them between 2 to 3 times a week. Currently he is unemployed. 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 LEGAL HISTORY: The patient was very vague. He denied having any legal history. However, from the medical record, it seems that he has extensive legal history at least 2 felonies related to possession of cocaine and he was in skilled nursing for 1 year. Currently he is not on probation. MENTAL STATUS EXAMINATION: The patient is casually dressed, disheveled, poor hygiene, evasive and guarded, especially regarding his substance abuse problem. He reported that his mood is okay. He denied any auditory or visual hallucination. He denied any delusional thinking. He does not feel that he needs to be here. He spent a lot of time questioning me if I will report him to the police regarding his drug use or regarding his possession to "to this white white powder". He is alert and oriented x3. His insight and judgment are limited. There are no tics or abnormal involuntary movement. His intellectual function is average to below. DIAGNOSES: 1. Substance use disorder, stimulant and cannabis use disorder. 2. Rule out mood disorder, unspecified versus substance induced mood disorder. 3. Rule out antisocial personality disorder trait. PLAN: The patient was admitted to the mental health unit on involuntary basis. I will not start the patient on any psychotropic medication. The patient will participate in group therapy and activity therapy as tolerated. He will be seen by the hospitalist for routine history and physical examination. Social Work will meet with the patient to assist in aftercare. I do recommend inpatient residential substance abuse treatment. Prognosis guarded due to his extensive history of substance abuse and poor compliance with outpatient followup. MMTOMEKAL / ZAK: [id number] /
--- NOTE | 2017-06-05 23:07 | CONS ---
CONSULTATION DATE OF CONSULTATION: June 05, 2017. REASON FOR CONSULTATION: Medical management requested by Dr. Trejo. CONSULTATION: This is a 27-year-old patient who was here earlier in the month in the psychiatry unit. At that time patient was there with some psychotic symptoms. The patient had been smoking, doing Adderall and doing some drugs including cocaine. The patient was discharged from here, not on any antipsychotic drugs. The patient is supposed to follow up with [facility], did not keep his appointment. He was admitted here with a petition. The patient has been feeling well. Denies any depression, anxiety. Eating well. No trouble sleeping. Having a bowel movement. Per the psychiatrist's H and P, the patient has found a white powder on him and he refused to declare what this was and kept asking if he police will be informed. When I questioned him about doing drugs, the patient evasive about the same, but able to maintain eye contact when I talked to him. Sitting up comfortably. REVIEW OF SYSTEMS: CONSTITUTIONAL: None. HEENT none. Respiratory none. Cardiovascular none. Gastrointestinal none. Genitourinary: None. Musculoskeletal: None. Dermatological and hematologic, lymphatic none. Psychiatry none. Neurological none. PAST MEDICAL HISTORY: Alcohol use, nicotine dependence, substance induced psychotic disorder. PAST SURGICAL HISTORY: Orthopedic surgery. PSYCH HISTORY: Substance abuse induced psychosis, possible ADHD. SOCIAL HISTORY: The patient living with looks like different friends. 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 Smokes about a pack a day. Alcohol occasionally. Has done marijuana and cocaine in the past. Evasive about more detailed responses to these questions. FAMILY HISTORY: Reviewed, noncontributory to presentation. HOME MEDICATIONS: None. EXAMINATION: Temperature 98, pulse 97, respiratory rate 16, blood pressure 130/72, pulse ox 96% on room. General appearance: Average built, sitting up, comfortable. Eyes pupils equal. Conjunctivae normal. HEENT: External appearance of nose and ears normal. Oral cavity normal. Neck JVD not raised. Mass not palpable. Respiratory effort: Normal. Lungs are clear. Cardiovascular 1st and 2nd sounds normal. No edema. ABDOMEN: Soft, nontender. Liver and spleen not palpable. No mass palpable. Lymphatics: No lymph nodes palpable in neck or axillae. Psychiatry: Alert and oriented times three. Mood and affect normal. Neurological pupils. Cranial nerves grossly intact. Power and sensation grossly intact. INVESTIGATIONS: White count 6.4, hemoglobin 15.6, potassium 4.7, BUN creatinine is normal. UA drug screen positive for amphetamines and marijuana. ASSESSMENT: 1. Chronic nicotine use. 2. Abnormal urine drug screen positive for marijuana and amphetamine. PLAN: Patient advised against smoking and use of recreational drugs. Nothing further to add from my standpoint. Patient should follow up with his family doctor upon discharge. Care was discussed with the patient. Thank you Dr. Trejo. Copy to Dr. Oneil. MMTOMEKAL / CRN: [id number] /
[2017-06-06 07:04] VITALS: TEMP 97.8
[2017-06-06] MEDS: NICOTINE 21MG/24HR PATCH TRANSDERM SCH (09:17)
--- NOTE | 2017-06-06 14:02 | P.PN ---
Progress Note - Text Progress Note Date: 06/06/17 Progress Note Date: 06/06/17 Interval history: The patient is seen in the office , ,more cooperative and not guarded and evasive as yesterday ,denies any sleeping or appetite problems , denies any AH or VH ,denies any SI or HI, focussing about discharge ,discussed [place] options including inpatient SA residential [place] but patient is reluctant ,his insight to his SA use is questionable Mental status exam: The patient is caucassian male appearing his stated age. He is dressed in his own clothing Better grooming Eye contact is intermittent. Speech is spontaneous and normal in rate and volume. He reports his mood "OK" He is endorsing no suicidal thoughts ,he deniers any AH or VH Thought process is linear. Insight to his SA is limited He demonstrates no verbal or physical aggressiveness he demonstrates no abnormal involuntary movements. PLAN: continue current [place] plan . He is encouraged to comply with groups. . He requires continued psychiatric hospitalization ,SW to assist in collateral information and after care
[2017-06-07 06:39] VITALS: BP 111/79; PULSE 90
[2017-06-07] MEDS: NICOTINE 21MG/24HR PATCH TRANSDERM SCH (09:48)
--- NOTE | 2017-06-07 11:50 | P.DS ---
Providers Date of admission: 06/04/17 19:06 Expected date of discharge: 06/07/17 Attending physician: Chandler Trejo Consults: 06/04/17 19:13 Consult Physician Routine Consulting Provider: Benson White Consult Reason/Comments: follow up H & P Do you want consulting provider notified?: Yes Primary care physician: Jeet Oneil - Discharge Diagnosis(es) (1) Substance-induced psychotic disorder Current Visit: No Status: Acute Priority: High Hospital Course: Brief summary of admission note: This patient is a 27-year-old male who is readmitted to the mental health unit on a pickup order. The patient was recently on the mental health unit he signed a deferral agreement however he did not follow through with completing his outpatient intake. A pickup order was issued and he was admitted to the hospital. He was seen over the weekend. We discussed his status during treatment team meeting. Staff feel the patient has not demonstrated any symptoms of psychosis or any significant mood symptoms. He has not verbalized any suicidal or homicidal ideation. He continues to state that he is willing to participate in outpatient care he does procrastinated the appointment to far. For full details please refer to the psychiatric evaluation note dated 06/05/2017. Summary of hospital course: The patient was admitted to the mental health unit he was brought in on a pickup order. A demand for hearing is scheduled for Wednesday at 1:30. The patient states he has no suicidal or homicidal ideation intent or plan. He is endorsing no auditory or visual hallucinations he is endorsing no specific delusions as we reviewed several types. Staff report that he is been calm and cooperative. He has been seen by internal medicine for routine history and physical exam. Social work has met with the patient. Mental status exam: The patient is a male appearing his stated age. He is alert he is dressed in his own clothing. Hygiene is adequate. Eye contact is appropriate speech is fluent spontaneous nonpressured. He reports having no suicidal or homicidal ideation intent or plan. He is endorsing no paranoid or persecutory thoughts. He is endorsing no thought insertion or control he is endorsing no ideas of reference. There is no observable evidence of psychosis. He does not demonstrate any tangential thinking loose associations or flight of ideas. He does not appear hypomanic or manic. He demonstrates no verbal or physical aggressiveness he demonstrates no abnormal involuntary movements. He is fully oriented to person place and date. Affect is appropriately expressive. Impressions 1. Substance-induced psychosis, rule out ADHD, rule out cannabis use disorder, rule out stimulant use disorder Plan: The patient is demonstrating no symptoms of psychosis he is reporting no thoughts of harming himself or others. He is capable of meeting his own activities of daily living. He does not require continued hospitalization on the mental health unit on an involuntary basis. He will have a court hearing scheduled for this Wednesday at 130 to address the need for treatment order. The patient indicates that his sister will help him in terms of support and will help him get to that court hearing. There is no imminent safety risk he is appropriate for transition to outpatient care. He is willing to participate with an intake appointment as soon as possible. He is instructed to abstain from any use of illicit substance as well as alcohol as these substances can elevate his safety risk. He does not wish to participate in any inpatient chemical dependency treatment. Patient Condition at Discharge: Stable Plan - Discharge Summary New Discharge Prescriptions: New Nicotine 21Mg/24Hr Patch [Habitrol] 1 patch TRANSDERM DAILY #12 patch Discharge Medication List Nicotine 21Mg/24Hr Patch [Habitrol] 1 patch TRANSDERM DAILY #12 patch 06/07/17 [ Rx] Follow up Appointment(s)/Referral(s): Jeet Oneil DO [Primary Care Provider] - 1-2 days
== END 2017-06-07 13:56 | disposition home or self-care (01) | DRG 897 ==
LOC: EC 16:42 → 3MHU 19:06
PROVIDERS: ADMIT Psychiatry & Neurology Psychiatry; ATTEND Psychiatry & Neurology Psychiatry
DX: F14.159 Cocaine abuse with cocaine-induced psychotic disorder, unspecified (principal); F17.210 Nicotine dependence, cigarettes, uncomplicated; F32.9 Major depressive disorder, single episode, unspecified; F90.9 Attention-deficit hyperactivity disorder, unspecified type; Z81.8 Family history of other mental and behavioral disorders; Z71.6 Tobacco abuse counseling; Z71.51 Drug abuse counseling and surveillance of drug abuser
CPT/HCPCS: 80053; 80306; 82075; 84443; 85025; 99285

== ENCOUNTER 2017-07-22 07:29 | Emergency (ER) | payer OTHER ==
--- NOTE | 2017-07-22 08:14 | ED ---
Psych HPI - General Chief Complaint: Psychiatric Symptoms Stated Complaint: EPS eval Time Seen by Provider: 07/22/17 07:50 Source: patient, police, RN notes reviewed Mode of arrival: ambulatory - History of Present Illness Initial Comments: This is a 27-year-old male with a history of psychosis substance abuse alcohol abuse who is brought in under petition by police for evaluation. No reports of trauma no reports of fevers chills nausea vomiting sweats or other symptoms the patient is very uncooperative and history is minimal. - Related Data Home Medications Medication Instructions Recorded Confirmed No Known Home Medications [No 07/22/17 07/22/17 Known Home Medications] Allergies Allergy/AdvReac Type Severity Reaction Status Date / Time No Known Allergies Allergy Verified 07/22/17 07:53 Review of Systems ROS Statement: Those systems with pertinent positive or pertinent negative responses have been documented in the HPI. ROS Other: All systems not noted in ROS Statement are negative. Limitations: ROS unobtainable due to patients medical condition Past Medical History Past Medical History: No Reported History History of Any Multi-Drug Resistant Organisms: None Reported Past Surgical History: Orthopedic Surgery Past Psychological History: ADD/ADHD Smoking Status: Current every day smoker Past Alcohol Use History: Heavy, Occasional Past Drug Use History: Marijuana General Exam - General Exam Comments Initial Comments: This is a well-developed well-nourished awake alert male who is demonstrating flight of ideas. There is a smell of alcohol conjoiners on his breath Limitations: no limitations General appearance: alert, in no apparent distress Head exam: Present: atraumatic, normocephalic, normal inspection Eye exam: Present: normal appearance, PERRL, EOMI. Absent: scleral icterus, conjunctival injection, periorbital swelling ENT exam: Present: normal exam, mucous membranes moist Neck exam: Present: normal inspection. Absent: tenderness, meningismus, lymphadenopathy Respiratory exam: Present: normal lung sounds bilaterally. Absent: respiratory distress, wheezes, rales, rhonchi, stridor Cardiovascular Exam: Present: normal rhythm, tachycardia, normal heart sounds. Absent: systolic murmur, diastolic murmur, rubs, gallop, clicks GI/Abdominal exam: Present: soft, normal bowel sounds. Absent: distended, tenderness, guarding, rebound, rigid Extremities exam: Present: normal inspection, full ROM, normal capillary refill. Absent: tenderness, pedal edema, joint swelling, calf tenderness Back exam: Present: normal inspection Neurological exam: Present: alert, oriented X3, CN II-XII intact Psychiatric exam: Present: depressed, manic, other (Demonstrating flight of ideas) Skin exam: Present: warm, dry, intact, normal color. Absent: rash Course Vital Signs 07/22/17 07/22/17 07:32 11:46 Temperature 98.0 F Pulse Rate 126 H 95 Respiratory 20 18 Rate Blood Pressure 133/78 156/70 O2 Sat by Pulse 97 99 Oximetry Medical Decision Making - Medical Decision Making The patient was determined to be sober and was evaluated by psychiatric service/ [facility] service. Patient currently is much more stabilized was found not to be meeting criteria for admission at this time. He will be discharged with outpatient follow-up. Disposition Clinical Impression: Alcohol intoxication delirium Disposition: HOME SELF-CARE Condition: Good Instructions: Alcohol Intoxication (ED), Abuse of Alcohol (ED), Acute Delirium (ED) Referrals: Jeet Oneil DO [Primary Care Provider] - 1-2 days
[2017-07-22 11:47] VITALS: RESP 18
[2017-07-22 14:09] VITALS: BP 145/72; PULSE 85; TEMP 98.2
== END 2017-07-22 14:00 | disposition home or self-care (01) ==
LOC: EC 07:29
DX: F10.921 Alcohol use, unspecified with intoxication delirium (principal); F19.10 Other psychoactive substance abuse, uncomplicated; F17.200 Nicotine dependence, unspecified, uncomplicated
CPT/HCPCS: 82075; 99284

== ENCOUNTER 2017-08-17 12:10 | Emergency (ER) | payer OTHER ==
[2017-08-17 12:16] VITALS: BP 146/88; RESP 18; TEMP 98.8
[2017-08-17 12:17] VITALS: PULSE 104
--- NOTE | 2017-08-17 12:34 | ED ---
General Adult HPI - General Chief complaint: Psychiatric Symptoms Stated complaint: Mental health Time Seen by Provider: 08/17/17 12:10 Source: patient, police, RN notes reviewed Mode of arrival: ambulatory Limitations: no limitations - History of Present Illness Initial comments: This is a 27-year-old male who presents emergency Department complaining that he shouldn't be here. Police brought him and on a pickup order. Patient states he missed one appointment followed up the next day and rescheduled his appointment in the police still picked him up. Patient states he is not suicidal or homicidal. Patient denies hearing any voices or seeing any hallucinations. Patient states he is not supposed to be in any medications. Patient states she's not been assigned a psychiatrist. Patient denies any drinking or drug use. Patient denies any physical complaints today. Patient denies headache patient denies any chest pain patient denies difficult breathing shortness breath per patient denies abdominal pain patient denies nausea vomiting diarrhea. Denies any recent fever chills. - Related Data Home Medications Medication Instructions Recorded Confirmed No Known Home Medications [No 07/22/17 08/17/17 Known Home Medications] Allergies Allergy/AdvReac Type Severity Reaction Status Date / Time No Known Allergies Allergy Verified 08/17/17 12:24 Review of Systems ROS Statement: Those systems with pertinent positive or pertinent negative responses have been documented in the HPI. ROS Other: All systems not noted in ROS Statement are negative. Past Medical History Past Medical History: No Reported History History of Any Multi-Drug Resistant Organisms: None Reported Past Surgical History: Orthopedic Surgery Past Psychological History: ADD/ADHD Smoking Status: Current every day smoker Past Alcohol Use History: Heavy, Occasional Past Drug Use History: Marijuana General Exam - General Exam Comments Initial Comments: GENERAL: Patient is well-developed and well-nourished. Patient is nontoxic and well- hydrated and is in no acute distress. ENT: Neck is soft and supple. No significant lymphadenopathy is noted. Oropharynx is clear. Moist mucous membranes. EYES: The sclera were anicteric and conjunctiva were pink and moist. Extraocular movements were intact and pupils were equal round and reactive to light. Eyelids were unremarkable. PULMONARY: Unlabored respirations. Good breath sounds bilaterally. No audible rales rhonchi or wheezing was noted. CARDIOVASCULAR: There is a regular rate and rhythm without any murmurs gallops or rubs. ABDOMEN: Soft and nontender with normal bowel sounds. SKIN: Skin is clear with no lesions or rashes and otherwise unremarkable. NEUROLOGIC: Patient is alert and oriented x3. Cranial nerves II through XII are grossly intact. Motor and sensory are also intact. Normal speech, volume and content. Symmetrical smile. MUSCULOSKELETAL: Normal extremities with adequate strength and full range of motion. LYMPHATICS: No significant lymphadenopathy is noted PSYCHIATRIC: Normal psychiatric evaluation. Normal interpersonal interactions appears functionally intact in deals appropriately with others. No signs of depression. No signs of anxiety. No delusions. No hallucinations. Limitations: no limitations Course Vital Signs 08/17/17 12:13 Temperature 98.8 F Pulse Rate 104 H Respiratory 18 Rate Blood Pressure 146/88 O2 Sat by Pulse 100 Oximetry Medical Decision Making - Medical Decision Making [facility] evaluated the gentleman and decided he can go home and follow-up with her new appointment. - Lab Data Lab Results 08/17/17 Range/Units 12:30 Urine Opiates Screen Detected H (NotDetected) Ur Oxycodone Screen Not Detected (NotDetected) Urine Methadone Screen Not Detected (NotDetected) Ur Propoxyphene Screen Not Detected (NotDetected) Ur Barbiturates Screen Not Detected (NotDetected) U Tricyclic Antidepress Not Detected (NotDetected) Ur Phencyclidine Scrn Not Detected (NotDetected) Ur Amphetamines Screen Not Detected (NotDetected) U Methamphetamines Scrn Not Detected (NotDetected) U Benzodiazepines Scrn Not Detected (NotDetected) Urine Cocaine Screen Not Detected (NotDetected) U Marijuana (THC) Screen Detected H (NotDetected) Disposition Clinical Impression: Evaluation by psychiatric service required Disposition: HOME SELF-CARE Condition: Good Additional Instructions: Follow-up for [facility]'s instructions Is patient prescribed a controlled substance at d/c from ED?: No Referrals: Jeet Oneil DO [Primary Care Provider] - 1-2 days Time of Disposition: 14:30
[2017-08-17 13:37] LABS: Amphetamine Screen,Urine Not Detected (NotDetected); Barbiturate Screen,Urine Not Detected (NotDetected); Benzodiazepines Screen,Urine Not Detected (NotDetected); Cocaine Screen,Urine Not Detected (NotDetected); Methadone Screen, Urine Not Detected (NotDetected); Opiate Screen,Urine Detected (NotDetected); Oxycodone Screen, Urine Not Detected (NotDetected); Phencyclidine Screen,Urine Not Detected (NotDetected); Tricyclic Antidepressant,Urine Not Detected (NotDetected); Urn Cannabinoid Scrn Detected (NotDetected)
== END 2017-08-17 14:53 | disposition home or self-care (01) ==
LOC: EC 12:10
DX: Z04.6 Encounter for general psychiatric examination, requested by authority (principal); F17.200 Nicotine dependence, unspecified, uncomplicated
CPT/HCPCS: 80306; 82075; 99284